=== PATIENT | female | born 1940 | race Caucasian/White ===

== ENCOUNTER 2018-11-18 08:51 | Day surgery (SDC) | payer MEDICARE ==
[2018-11-16 11:40] LABS: BASOPHILS % (AUTO) 0.6 % (0-1); EOSINOPHILS # (AUTO) 0.1 X10'3 (0-0.9); EOSINOPHILS % (AUTO) 1.5 % (0-6); HEMATOCRIT 40.4 % (35.0-45.0); HEMOGLOBIN 13.5 g/dl (12.0-16.0); LYMPHOCYTES # (AUTO) 1.8 X10'3 (1.1-4.8); LYMPHOCYTES % (AUTO) 25.1 % (21-51); MEAN CORPUSCULAR HEMOGLOBIN 31.5 PG (27.0-31.0); MEAN CORPUSCULAR HGB CONC 33.5 g/dL (33.0-36.5); MEAN CORPUSCULAR VOLUME 94.1 FL (78-98); MEAN PLATELET VOLUME 8.2 FL (7.4-10.4); MONOCYTES # (AUTO) 0.8 X10'3 (0-0.9); MONOCYTES % (AUTO) 11.5 % (2-12); NEUTROPHILS # (AUTO) 4.3 X10'3 (1.8-7.7); NEUTROPHILS % (AUTO) 61.3 % (42-75); PLATELET COUNT 222 X10'3 (140-440); RED CELL DISTRIBUTION WIDTH 13.3 % (11.5-14.5)
[2018-11-16 11:50] LABS: ALANINE AMINOTRANSFERASE 20 U/L (12-78); ALBUMIN 3.5 G/DL (3.4-5.0); ALKALINE PHOSPHATASE 74 IU/L (46-116); ANION GAP 7 (8-16); ASPARTATE AMINO TRANSFERASE 17 U/L (10-37); BILIRUBIN,TOTAL 0.3 MG/DL (0.1-1.0); BLOOD UREA NITROGEN 18 MG/DL (7-18); BUN/CREATININE RATIO 25.7 (6.6-38.0); CALCIUM 8.7 MG/DL (8.5-10.1); CHLORIDE 105 MMOL/L (99-107); GLUCOSE 104 MG/DL (70-104); SODIUM 140 MMOL/L (135-145); TOTAL CARBON DIOXIDE 28.4 MMOL/L (24-32); eGFR 81 ML/MIN
[2018-11-16 12:00] LABS: PARTIAL THROMBOPLASTIN TIME 27 SECONDS (22-32)
[~2018-11-18] VITALS: Ht 162.6 cm; Wt 100.2 kg
[2018-11-18] VITALS (8 sets, daily range): BP systolic 117–136; BP diastolic 58–73
[2018-11-18] MEDS ORDERED: normal saline 1,000 ML IV SCH (09:25)
[2018-11-18] MEDS ORDERED: nitroGLYCERIN 0.4mg SUBLingual tab SL PRN (09:25)
[2018-11-18] MEDS ORDERED: diphenhydrAMINE 25mg capsule PO PRN (09:25)
[2018-11-18] MEDS ORDERED: LORazepam 0.5 MG tablet PO PRN (09:25)
[2018-11-18] MEDS ORDERED: ESCI20TA38 PO (09:56)
[2018-11-18] MEDS ORDERED: BACL10TA PO (09:56)
[2018-11-18] MEDS ORDERED: ACET-2319 PO (09:56)
[2018-11-18] MEDS ORDERED: PRED5DRO23 OP (09:56)
[2018-11-18] MEDS ORDERED: LEVE500T99 PO (09:56)
[2018-11-18] MEDS ORDERED: midazolam 2 mg/2 ml injection ONE ×2 (10:27→10:59)
[2018-11-18] MEDS ORDERED: iohexol 350 MG/ML 50ML vial IV ONE ×2 (10:27→11:09)
[2018-11-18] MEDS ORDERED: iohexol 350MG/ML 100ml bottle IV ONE (10:27)
[2018-11-18] MEDS ORDERED: fentaNYL/PF 50MCG/1 ML 2ML syringe ONE ×2 (10:27→10:59)
[2018-11-18] MEDS ORDERED: LIDOcaine 1% (10mg/ml)w/preservative injection 20ml MDV ONE (10:27)
--- NOTE | 2018-11-18 11:30 | NUR ---
CORRECTION MADE TO PERIPHERAL PULSE TIME CHECKS-PT RETURNED TO FLOOR AT 1130 Addendum: 11/18/18 at 1447 by Blank Pizarro RN Amended: Links added.
[2018-11-18] MEDS ORDERED: HYDROcodone/acetaminophen 5mg/325mg tablet PO PRN (12:20)
[2018-11-18] MEDS ORDERED: ondansetron/PF 4mg/2ml inj IV PRN (12:20)
[2018-11-18] MEDS ORDERED: proCHLORperazine 10 MG/2 ml inj IV PRN (12:20)
[2018-11-18] MEDS ORDERED: HYDROcodone/acetaminophen 10/325mg tab PO PRN (12:20)
[2018-11-18] MEDS ORDERED: OXAZEpam 15mg capsule PO PRN (12:20)
== END 2018-11-18 17:45 | disposition home or self-care (01) ==
LOC: SSTAY O 08:51
PROVIDERS: ATTEND Internal Medicine Cardiovascular Disease
DX: I25.10 Atherosclerotic heart disease of native coronary artery without angina pectoris (principal); G40.909 Epilepsy, unspecified, not intractable, without status epilepticus; E78.5 Hyperlipidemia, unspecified; Z94.7 Corneal transplant status
CPT/HCPCS: 36415; 71046; 80053; 85025; 85610; 85730; 93005; 93458; 93567; 99152; A6257; J1644; J2001; J2250; J3010; J7030; Q0163; Q9967; 99153; A4620; C1760; C1769

== ENCOUNTER 2020-07-06 10:54 | Inpatient (IN) | payer MEDICARE ==
[2020-07-06] VITALS (14 sets, daily range): BP systolic 123–153; BP diastolic 56–83
[~2020-07-06] VITALS: Ht 162.6 cm; Wt 102.3 kg
[~2020-07-06 10:54] MED LIST: ACET-2319 PO; BACL10TA PO; ESCI20TA45 PO; LEVE500T99 PO; PRED5DRO23 EACHEYE
[2020-07-06 11:23] LABS: BASOPHILS % (AUTO) 0.7 % (0-1); EOSINOPHILS # (AUTO) 0.6 X10'3 (0-0.9); EOSINOPHILS % (AUTO) 9.5 % (0-6); HEMATOCRIT 40.8 % (35.0-45.0); HEMOGLOBIN 13.7 g/dl (12.0-16.0); LYMPHOCYTES # (AUTO) 1.7 X10'3 (1.1-4.8); LYMPHOCYTES % (AUTO) 26.2 % (21-51); MEAN CORPUSCULAR HEMOGLOBIN 31.2 PG (27.0-31.0); MEAN CORPUSCULAR HGB CONC 33.5 g/dL (33.0-36.5); MEAN CORPUSCULAR VOLUME 93.2 FL (78-98); MEAN PLATELET VOLUME 8.5 FL (7.4-10.4); MONOCYTES # (AUTO) 0.8 X10'3 (0-0.9); MONOCYTES % (AUTO) 12.1 % (2-12); NEUTROPHILS # (AUTO) 3.4 X10'3 (1.8-7.7); NEUTROPHILS % (AUTO) 51.5 % (42-75); PLATELET COUNT 211 X10'3 (140-440); RED BLOOD COUNT 4.37 X10'6 (4.20-5.60); RED CELL DISTRIBUTION WIDTH 13.7 % (11.5-14.5); WHITE BLOOD COUNT 6.7 X10'3 (4.5-11.0)
[2020-07-06 11:37] LABS: PARTIAL THROMBOPLASTIN TIME 26 SECONDS (22-32)
[2020-07-06] MEDS ORDERED: ASPI-955 PO (11:38)
[2020-07-06] MEDS ORDERED: MELA5TAB21 PO (11:38)
[2020-07-06 11:39] LABS: ALANINE AMINOTRANSFERASE 24 U/L (12-78); ALBUMIN 3.4 G/DL (3.4-5.0); ALBUMIN/GLOBULIN RATIO 0.9 (1.1-1.5); ALKALINE PHOSPHATASE 75 IU/L (46-116); ANION GAP 9 (8-16); ASPARTATE AMINO TRANSFERASE 26 U/L (10-37); BILIRUBIN,TOTAL 0.3 MG/DL (0.1-1.0); BLOOD UREA NITROGEN 15 MG/DL (7-18); BUN/CREATININE RATIO 20.3 (6.6-38.0); CALCIUM 8.5 MG/DL (8.5-10.1); CHLORIDE 105 MMOL/L (99-107); CREATININE 0.74 MG/DL (0.40-0.90); GLUCOSE 111 MG/DL (70-104); POTASSIUM 4.3 MMOL/L (3.5-5.1); SODIUM 140 MMOL/L (135-145); TOTAL CARBON DIOXIDE 25.7 MMOL/L (24-32); TOTAL PROTEIN 7.3 G/DL (6.4-8.2); eGFR 76 ML/MIN
[2020-07-06] MEDS ORDERED: ondansetron/PF 4mg/2ml inj IV PRN ×2 (12:45→15:05)
[2020-07-06] MEDS ORDERED: magnesium 2GM in 50ml NS 50 ML IV PRN (12:45)
[2020-07-06] MEDS ORDERED: magnesium Cl slow-release 64mg tablet PO PRN (12:45)
[2020-07-06] MEDS ORDERED: magnesium 4gm in 100ml NS 100 ML IV PRN (12:45)
[2020-07-06] MEDS ORDERED: potassium CL 10mEq/100ml bag 100 ML IV PRN ×2 (12:45)
[2020-07-06] MEDS ORDERED: potassium Cl 20 mEq SR tablet PO PRN ×2 (12:45)
[2020-07-06] MEDS ORDERED: acetaminophen 325mg tablet PO PRN (12:45)
[2020-07-06] MEDS ORDERED: LIDOcaine 1% 30ml preserv. free vial ONE (14:30)
[2020-07-06] MEDS ORDERED: meperidine/PF 25mg/ml syringe IV PRN ×3 (15:05)
[2020-07-06] MEDS ORDERED: ringers solution, lacted 1,000 ML IV SCH (15:05)
[2020-07-06] MEDS ORDERED: proCHLORperazine 10 MG/2 ml inj IV PRN (15:05)
[2020-07-06] MEDS ORDERED: morphine 2 MG/ML inj. syringe IV PRN (15:05)
[2020-07-06] MEDS ORDERED: morphine 4 MG/ML inj SYRINge IV PRN (15:05)
[2020-07-06] MEDS ORDERED: fentaNYL/PF 50MCG/1 ML 2ML syringe ONE (15:27)
[2020-07-06] MEDS ORDERED: MIDAZolam 5mg/5ml vial ONE (15:27)
[2020-07-06] MEDS ORDERED: ceFAZolin 1000mg inj ONE ×2 (15:29)
[2020-07-06] MEDS ORDERED: ceFAZolin/D5W- 1GM premix 50 ML IV SCH (16:00)
[2020-07-06] MEDS ORDERED: propofol inj 20 ML IV ONE ×2 (16:48)
--- NOTE | 2020-07-06 16:55 | NUR ---
Received from OR via PCU BED, accompanied by Anesthesiologist DR SHARPE and report given by Anesthesiolgist. PT AWAKE, PLACED ON O2 AND MONITOR, S/P PPM INSERTION, MAC ANESTHESIA, LOCAL AT LEFT UPPER CHEST SITE, NO DRAINAGE OR SWELLING NOTED, PT HAS SLING TO LEFT ARM LITER OF LR PLACED OVER SITE PER DR GORDON, 20 PIV IN RIGHT HAND INTACT AND PATENT. PT DENIES ANY PAIN OR NAUSEA, AV PACED, PT'S RATE IS IN 80S. WILL CONTINUE TO ASSESS.
[2020-07-06] MEDS ORDERED: HYDROcodone/acetaminophen 10/325mg tab PO PRN (17:25)
--- NOTE | 2020-07-06 17:33 | NUR ---
Patient in Recovery. I have received report from JESSICA Cabello and had the opportunity to ask questions and assume patient care. Awaiting patient's arrival from recovery
--- NOTE | 2020-07-06 17:40 | NUR ---
Report called to receiving nurse. Transferred via PCU TO ROOM 3028 A Belongings . Special Issues communicated to receiving nurse. PT DOING WELL, EXPLAINED TO PT AND HER NURSE THAT SHE NEEDS TO BE SITTING UPRUGHT FOR A COUPLE OF HOURS PER DR GORDON. PT STILL DENIES ANY PAIN AT THIS TIME.
--- NOTE | 2020-07-06 17:50 | NUR ---
Patient accompanied by recovery nurse, Destiney LOPEZ. MRSA Swab taken and vital signs. Patient sitting upright at 30 degrees for the next few hours, per Dr. Reyes's orders. No hematoma around pacemaker site. Dressing clean, dry, and intact. No complaints of pain.
--- NOTE | 2020-07-06 18:14 | NUR ---
Patient in room PCU 3028. I have received report from Tesha LOPEZ and had the opportunity to ask questions and assume patient care.
--- NOTE | 2020-07-06 18:25 | NUR ---
Patient in room PCU 3028. I have received report from Tesha LOPEZ and had the opportunity to ask questions and assume patient care.
--- NOTE | 2020-07-06 18:30 | NUR ---
Problems reprioritized. Patient report given, questions answered & plan of care reviewed with JESSICA Lozada.
[2020-07-06] MEDS: K and/or MAG REPLACEMENT MC SCH (19:17)
[2020-07-06] MEDS: levetiracetam 250mg tablet PO SCH (19:19)
[2020-07-06] MEDS: docusate sod 100mg capsule PO SCH (19:19)
[2020-07-06] MEDS ORDERED: Melatonin 3mg tablet PO SCH (21:00)
[2020-07-07] MEDS ORDERED: ceFAZolin inj. 1,000 MG in dextrose 5%-water 50ml 50 ML IV SCH ×2
[2020-07-07 02:45] VITALS: BP 141/62
[2020-07-07 05:19] LABS: BASOPHILS % (AUTO) 0.5 % (0-1); EOSINOPHILS # (AUTO) 0.4 X10'3 (0-0.9); EOSINOPHILS % (AUTO) 5.8 % (0-6); HEMATOCRIT 39.5 % (35.0-45.0); HEMOGLOBIN 13.2 g/dl (12.0-16.0); LYMPHOCYTES % (AUTO) 28.2 % (21-51); MEAN CORPUSCULAR HEMOGLOBIN 31.6 PG (27.0-31.0); MEAN CORPUSCULAR HGB CONC 33.5 g/dL (33.0-36.5); MEAN CORPUSCULAR VOLUME 94.3 FL (78-98); MONOCYTES # (AUTO) 0.8 X10'3 (0-0.9); MONOCYTES % (AUTO) 11.1 % (2-12); NEUTROPHILS # (AUTO) 3.9 X10'3 (1.8-7.7); NEUTROPHILS % (AUTO) 54.4 % (42-75); PLATELET COUNT 176 X10'3 (140-440); RED BLOOD COUNT 4.19 X10'6 (4.20-5.60); WHITE BLOOD COUNT 7.1 X10'3 (4.5-11.0)
[2020-07-07 05:20] LABS: ALBUMIN 3.1 G/DL (3.4-5.0); ANION GAP 8 (8-16); BLOOD UREA NITROGEN 12 MG/DL (7-18); BUN/CREATININE RATIO 17.1 (6.6-38.0); CALCIUM 8.3 MG/DL (8.5-10.1); CHLORIDE 106 MMOL/L (99-107); GLUCOSE 90 MG/DL (70-104); MAGNESIUM 1.9 MG/DL (1.5-2.4); POTASSIUM 3.9 MMOL/L (3.5-5.1); SODIUM 141 MMOL/L (135-145); TOTAL CARBON DIOXIDE 26.8 MMOL/L (24-32); eGFR 81 ML/MIN
--- NOTE | 2020-07-07 05:32 | NUR ---
[place] documentation: I have reviewed and agree with all interventions, assessments performed and documented by Shelbie Escoto Medication Administration: For this medication-pass time frame, all medication were reviewed, dispensed, administered and documented per hospital policy by Shelbie LOPEZ
--- NOTE | 2020-07-07 06:00 | NUR ---
Patient in room PCU 3028. I have received report from Neville LOPEZ and had the opportunity to ask questions and assume patient care.
--- NOTE | 2020-07-07 06:41 | NUR ---
Problems reprioritized. Patient report given, questions answered & plan of care reviewed with Mariella LOPEZ.
[2020-07-07] MEDS ORDERED: ESCITALOPRAM OXALATE 5 MG TABLET PO SCH (08:00)
[2020-07-07] MEDS: K and/or MAG REPLACEMENT MC SCH (08:00)
[2020-07-07] MEDS ORDERED: aspirin 81mg tab.chew PO SCH (08:00)
[2020-07-07] MEDS ORDERED: prednisoLONE acetate 1% ophth susp 5ml EACHEYE SCH (08:00)
[2020-07-07] MEDS ORDERED: ceFAZolin/D5W- 1GM premix 50 ML IV SCH (08:00)
[2020-07-07] MEDS: levetiracetam 250mg tablet PO SCH (08:50)
[2020-07-07] MEDS: docusate sod 100mg capsule PO SCH (08:50)
[2020-07-07 09:00] VITALS: BP 149/75
[2020-07-07 11:00] VITALS: BP 168/73
--- NOTE | 2020-07-07 13:35 | NUR ---
PAGER ID: [phone] MESSAGE: RE: [id number] Rose Dutta. Dr. Reyes said OKAY for patient to CT today. [place] [phone]
[2020-07-07] MEDS ORDERED: CEPH250T PO (13:48)
--- NOTE | 2020-07-07 14:27 | NUR ---
Patient stable for discharge home today. All discharge instructions given to patient and questions answered. IV removed with canula intact. Patient given instructions for after-care of pacemaker.
== END 2020-07-07 14:20 | disposition home or self-care (01) | DRG 242 ==
LOC: ER 10:54 → UNDOADMOB 13:35 → INTOOBSV 13:35 → ED HOLD 13:35 → PCU 3S 17:56 → OBSVTOIN 07-07 10:00
PROVIDERS: ADMIT Internal Medicine; ATTEND Internal Medicine
PROC: 02H63JZ Insertion of Pacemaker Lead into Right Atrium, Percutaneous Approach (ICD-10-PCS; 2020-07-06)
PROC: 02HK3JZ Insertion of Pacemaker Lead into Right Ventricle, Percutaneous Approach (ICD-10-PCS; 2020-07-06)
PROC: 0JH606Z Insertion of Pacemaker, Dual Chamber into Chest Subcutaneous Tissue and Fascia, Open Approach (ICD-10-PCS; principal; 2020-07-06 15:28)
DX: I49.5 Sick sinus syndrome (principal); I21.A1 Myocardial infarction type 2; I45.9 Conduction disorder, unspecified; I25.10 Atherosclerotic heart disease of native coronary artery without angina pectoris; Z79.899 Other long term (current) drug therapy; Z79.82 Long term (current) use of aspirin
CPT/HCPCS: 36415; 71045; 71046; 76000; 80048; 80053; 83735; 83880; 84443; 84484; 85025; 85610; 85730; 87081; 87635; 93005; 99285; A4215; A4565; A6258; A6402; A7000; C1785; G0378; J0690; J2001; J2250; J2704; J3010; J7060